=== PATIENT | female | born 1970 | race Caucasian/White ===

== ENCOUNTER 2024-05-03 09:45 | Emergency (ER) | payer OTHER, SELFPAY ==
[2024-05-03] VITALS (19 sets, daily range): BP systolic 75–120; BP diastolic 48–84; PULSE 64–101; RESP 14–22; TEMP 35.9–36.8; O2SAT 94–100; BMI 40.2
--- NOTE | 2024-05-03 10:03 | EKG12_ITS ---
Test Reason : Blood Pressure : */* mmHG Vent. Rate : 83 BPM Atrial Rate : 83 BPM P-R Int : 166 ms QRS Dur : 80 ms QT Int : 376 ms P-R-T Axes : 45 11 61 degrees QTcB Int : 441 ms Normal sinus rhythm Low voltage QRS Borderline ECG Confirmed by Jose Mock ([id number]), design editor [place] ([id number]) on 05/06/2024 10:45:52 AM Referred By: ANNMARIE Confirmed By: Jose Mock
--- NOTE | 2024-05-03 10:04 | EX.ED.DYSGE1 ---
HPI History of Present Illness Chief Complaint: Abd Pain Informant: patient, spouse/S.O. and EMS Narrative Narrative: 53-year-old female presenting to the emergency room with syncope abdominal/chest pain and back pain. states that the patient went for a walk. When she got back she whistle deformity came out of the shop and saw her had a syncopal episode. He states that having syncope is not that uncommon for her. She states that after the walk she developed pain in her mid back and in her lower chest upper abdomen which she feels as a pressure. EMS states that she had a syncopal episode for them. Prehospital EKG was reviewed by them and was reading a ST elevation [place]. They administered aspirin and Brilinta. When they called in and I reviewed the EKG and advised not to give heparin. Family states she has a history of congestive heart failure and she states that she takes a water pill. Patient states that she has leaky valves although. Whenever she needs it other than that she takes herbs because medicines make her heart rate fast. states that she has seen a Dr. Gutierrez in the country of [place]. Patient notes nausea but states that she cannot vomit since she had her hiatal hernia fixed. [facility] Medications ?Medication ?Instructions ?Recorded ?Last Taken ?Type dicyclomine 20 mg tablet 20 mg PO TID PRN abdominal pain 05/03/24 Unknown Rx #30 tabs ondansetron 4 mg disintegrating 4 mg PO Q6H PRN PRN Nausea #15 tabs 05/03/24 Unknown Rx tablet Allergy/AdvReac Type Severity Reaction Status Date / Time Iodinated Contrast Media Allergy Severe Anaphylaxis Verified 05/03/24 09:56 (iodine contrast) Penicillins Allergy Severe Anaphylaxis Verified 05/03/24 09:56 Social History Smoking Status: Never smoker ROS ROS ED Constitutional Constitutional ED: Denies chills or weight loss Eyes Eyes: Denies change in vision or diplopia ENT ENT ED: Denies ear pain, rhinorrhea or sore throat Cardiovascular Cardiovascular: Reports chest pain and other Details: Syncope ; Denies orthopnea, palpitations or racing heartbeat Respiratory/Chest Respiratory/Chest: Denies cough, dyspnea or orthopnea Gastrointestinal Gastrointestinal: Reports abdominal pain and nausea; Denies diarrhea or vomiting Genitourinary Genitourinary ED: Denies dysuria, hematuria or urinary frequency Musculoskeletal Musculoskeletal: Reports back pain; Denies arthralgias or myalgias Integumentary Denies abscess or rash Neurologic Neurologic: Denies headache(s) or weakness Psychiatric Psychiatric: Denies anxiety, depression, suicidal ideation or suicidal thoughts Endocrine Endocrinology: Denies polydipsia, polyphagia or polyuria Allergic/Immunologic Allergic/Immunologic ED: Denies mouth swelling, tongue swelling or urticaria EXAM Physical Exam Narrative Exam Narrative: Patient is tearful. Patient states she is having difficulty laying back in the bed and that she needs to sit on the side of the bed. Const Vital Signs: 05/03/24 09:47 05/03/24 09:54 05/03/24 10:00 Temperature 96.6 F L Temperature Source Axillary Pulse Rate 77 86 101 H Respiratory Rate 18 19 H 21 H Blood Pressure 109/83 H 89/50 L Blood Pressure Mean 91 63 Pulse Ox 97 99 100 Oxygen Delivery Method Room Air 05/03/24 10:15 05/03/24 10:30 05/03/24 10:34 Temperature Temperature Source Pulse Rate Respiratory Rate 20 H Blood Pressure 86/48 L 75/62 L 100/77 Blood Pressure Mean 58 68 85 Pulse Ox 99 Oxygen Delivery Method 05/03/24 10:45 05/03/24 10:45 05/03/24 11:00 Temperature Temperature Source Pulse Rate 85 Respiratory Rate 18 Blood Pressure 100/67 97/65 Blood Pressure Mean 77 76 Pulse Ox 97 97 Oxygen Delivery Method 05/03/24 11:15 05/03/24 11:30 05/03/24 11:45 Temperature Temperature Source Pulse Rate Respiratory Rate Blood Pressure 96/64 108/84 H Blood Pressure Mean 76 94 Pulse Ox 97 98 99 Oxygen Delivery Method 05/03/24 12:04 05/03/24 12:15 05/03/24 12:30 Temperature Temperature Source Pulse Rate 71 72 69 Respiratory Rate 20 H 17 15 Blood Pressure 102/77 111/77 Blood Pressure Mean 86 88 Pulse Ox 99 100 99 Oxygen Delivery Method 05/03/24 12:45 05/03/24 13:00 05/03/24 14:10 Temperature Temperature Source Pulse Rate 72 64 67 Respiratory Rate 20 H 14 22 H Blood Pressure 105/76 97/52 L 101/72 Blood Pressure Mean 87 67 81 Pulse Ox 99 99 100 Oxygen Delivery Method Nasal Cannula Room Air 05/03/24 15:20 Temperature Temperature Source Pulse Rate Respiratory Rate Blood Pressure Blood Pressure Mean Pulse Ox 100 Oxygen Delivery Method Positive well nourished, well developed and obese General Appearance ED: well developed Nutritional Appearance: obese HEENT Reports normocephalic, head/scalp atraumatic and moist mucous membranes Eyes PERRL and EOMs intact bilaterally Neck no lymphadenopathy, supple and no JVD Resp normal respiratory effort and clear to auscultation bilaterally Cardio regular rate, regular rhythm and no murmurs GI normal to inspection, nondistended, normoactive bowel sounds and non-tender Palpation: soft Back/Spine no CVA tenderness and normal ROM Extremity normal to inspection General Extremety ED: Negative for edema General Extremity: Negative for edema Neuro oriented x3 and CN's II-XII intact bilaterally Sensorium / Orientation: alert Motor Exam: strength 5/5 throughout Psych Mood & Affect: tearful; Negative for depressed Skin no rashes or lesions noted and no wounds MDM MDM MDM Narrative Medical decision making narrative: Differential diagnosis includes but not limited to acute coronary syndrome vasovagal syncope pancreatitis biliary colic AAA aortic dissection anemia cardiac dysrhythmia IVs were established EKG here does not show ST elevation. While awaiting blood work the patient had a syncopal episode. During which time she became hypotensive and the monitor showed a sinus bradycardia around 35. She woke after less than a minute. Shortly thereafter she had a exceedingly large bowel movement. Patient had a repeat EKG that showed no significant change. 3 sets of cardiac enzymes have been negative. My independent interpretation of the chest x-ray is no acute process. White count is significantly elevated 24.7 may be related to stress demargination and we are going to repeat it. Hemoglobin 14.4 BUN/creatinine LFTs showed only a minor elevation in transaminases at [address] of the chest and abdomen pelvis were obtained without contrast because the patient notes a anaphylactic reaction to contrast. These did not show any obvious aortic aneurysm leakage free air in the abdomen. Patient has received morphine Zofran as well as Ativan. She also received IV fluids. Patient has not had any further syncope. There have been no dysrhythmias noted on the monitor other than the sinus bradycardia during the syncopal event. Patient is now eating crackers and drinking water. I believe the patient can be discharged home. That she most likely has a diarrheal illness and had a vasovagal syncope. History & Record Review Discussion w/independent historian: EMS personnel, Patient and Significant other Lab Data Attestation: I reviewed the patient's lab results. Labs: Laboratory Results - last 24 hr 05/03/24 05/03/24 05/03/24 09:50 12:12 13:30 WBC 24.7 H RBC 4.68 Hgb 14.4 Hct 42.8 MCV 91.5 MCH 30.8 MCHC 33.6 RDW Std Deviation 46.3 H RDW Coeff of Maurice 14.0 Plt Count 347 MPV 9.7 Immature Gran % (Auto) 0.900 Neut % (Auto) 81.9 H Lymph % (Auto) 13.7 L [place] % (Auto) 3.0 Eos % (Auto) 0.2 Baso % (Auto) 0.3 Absolute Neuts (auto) 20.3 H Absolute Lymphs (auto) 3.38 Nucleated RBC % 0 Differential Comment COMMENT PT 12.3 INR 0.9 APTT 25.7 Sodium 139 Potassium 3.9 Chloride Direct 102 Carbon Dioxide 23.3 Anion Gap 14 BUN 18 Creatinine 0.80 Estim Creat Clear Calc 81.16 Est GFR (MDRD) Non-Af 87 BUN/Creatinine Ratio 22.8 H Glucose 128 H Calcium 10.4 Total Bilirubin 0.63 Direct Bilirubin 0.22 AST 34 H ALT 39 H Alkaline Phosphatase 84 Troponin T High Sens 8 Troponin T Hi Sens 2 Hr 10 Troponin T Hi Sens 2Hr Delta 2 Troponin T Hi Sens 4Hr 10 Troponin T Hi Sens 4Hr Delta 3 Total Protein 7.8 Albumin 4.5 Globulin 3.3 Lipase 21 05/03/24 14:42 WBC 16.5 H RBC 4.01 L Hgb 12.4 Hct 37.1 MCV 92.5 MCH 30.9 MCHC 33.4 RDW Std Deviation 46.5 H RDW Coeff of Maurice 13.9 Plt Count 239 MPV 9.5 Immature Gran % (Auto) 1.000 H Neut % (Auto) 83.4 H Lymph % (Auto) 9.2 L [place] % (Auto) 5.8 Eos % (Auto) 0.4 Baso % (Auto) 0.2 Absolute Neuts (auto) 13.8 H Absolute Lymphs (auto) 1.52 Nucleated RBC % 0 Differential Comment PT INR APTT Sodium Potassium Chloride Direct Carbon Dioxide Anion Gap BUN Creatinine Estim Creat Clear Calc Est GFR (MDRD) Non-Af BUN/Creatinine Ratio Glucose Calcium Total Bilirubin Direct Bilirubin AST ALT Alkaline Phosphatase Troponin T High Sens Troponin T Hi Sens 2 Hr Troponin T Hi Sens 2Hr Delta Troponin T Hi Sens 4Hr Troponin T Hi Sens 4Hr Delta Total Protein Albumin Globulin Lipase Radiography Diagnostic Testing: Clinical Impression(s) from Imaging Studies Chest X-Ray 05/03/24 10:10 IMPRESSION: No acute abnormality is seen. Borderline cardiomegaly. Reading Location: [facility] Chest/Abdomen/Pelvis CT 05/03/24 10:54 IMPRESSION: Mildly distended gallbladder lumen. No evidence of gallstones on this examination. One or more dose reduction techniques were used (e.g., Automated exposure control, adjustment of the mA and/or kV according to patient size, use of iterative reconstruction technique). Reading Location: [facility] EKG Initial EKG: Attestation: I personally reviewed and interpreted this EKG as follows: Comments: Normal sinus rhythm ventricular rate of 83 bpm. Follow-up EKG: Attestation: I personally reviewed and interpreted this EKG as follows: Comments: Normal sinus rhythm ventricular rate of 88 bpm Discharge Plan Triage Chief Complaint: Abd Pain ED Provider: Jaime Black Dx/Rx/DC Orders Clinical Impression: Syncope, Chest pain, Abdominal pain, Diarrhea Instructions: Diagnosing Syncope, ED Fainting, Vagal Reaction Prescriptions: New ondansetron 4 mg tablet,disintegrating 4 mg PO Q6H PRN PRN (Reason: Nausea) Qty: 15 0RF dicyclomine 20 mg tablet 20 mg PO TID PRN (Reason: abdominal pain) Qty: 30 0RF Primary Care Provider: Isidro Graham Referrals: Isidro Graham, [facility] [Primary Care Provider] - As Needed Print Language: Azerbaijani Disposition Disposition: Home, Self Care
--- NOTE | 2024-05-03 10:10 | RAD_ITS ---
PROCEDURE: CHEST 1 VIEW (PORTABLE) REASON FOR EXAM: Chest pain and shortness of breath. TECHNIQUE: Frontal view of the chest. COMPARISON: None FINDINGS: EKG electrodes are seen. Borderline cardiomegaly. The lungs are clear. Degenerative changes are identified within the thoracic spine. RAD/Chest 1 View (Portable) IMPRESSION: No acute abnormality is seen. Borderline cardiomegaly. Reading Location: [facility]
[2024-05-03 10:20] LABS: Absolute Lymphocyte Count 3.38 X10^3/uL (0.83-4.51); Absolute Neutrophil Count 20.3 X10^3/uL (2.0-7.7); Basophil# 0.07 X10^3/uL; Basophil% 0.3 % (0-1); Eosinophil# 0.06 X10^3/uL; Eosinophils% 0.2 % (0-5); Hematocrit 42.8 % (37-47); Hemoglobin 14.4 g/dL (12.0-15.0); Lymphocyte # 3.38 X10^3/ul (0.83-4.51); Lymphocyte % 13.7 % (19-41); Mean Corp Hgb Conc 33.6 g/dL (32-36); Mean Corpuscular Hgb 30.8 pg (27.0-32.0); Mean Corpuscular Volume 91.5 fL (81-99); Mean Platelet Vol. 9.7 fl (6.2-12.0); Monocyte# 0.75 X10^3/uL; NRBC Flagged by Analyzer 0 % (0-5); Neutrophil # 20.26 X10^3/uL (2.7-7.7); Neutrophil % 81.9 % (47-70); POSITIVE DIFFERENTIAL YES; Platelet Count 347 K/mm3 (150-450); RBC Distribution Width SD 46.3 fl (35.1-43.9); Red Blood Count 4.68 M/mm3 (4.2-5.4); White Blood Count 24.7 K/mm3 (4.4-11.0)
[2024-05-03 10:22] LABS: Differential Indicated SCAN CRITERIA MET
[2024-05-03 10:29] LABS: International Normalized Ratio 0.9; Partial Thromboplast Time 25.7 Seconds (24.1-36.2); Prothrombin Time (Protime)PT. 12.3 SECONDS (11.7-14.9)
[2024-05-03] MEDS: Morphine 4 MG/ML Syringe IV (10:39)
[2024-05-03] MEDS: Lorazepam 2 MG/ML WCH Syringe 1 MG IV (10:39)
[2024-05-03] MEDS: Ondansetron 4 MG/2 ML Vial IV (10:39)
[2024-05-03 10:46] LABS: AST(SGOT) 34 U/L (<=31); Alanine Aminotransfer ALT/SGPT 39 U/L (<=34); Albumin, Serum 4.5 g/dL (3.5-5.0); Alkaline Phosphatase 84 U/L (35-104); Anion Gap 14 (5-15); BUN 18 mg/dL (4-19); BUN/Creat Ratio 22.8 RATIO (10-20); Bilirubin, Direct 0.22 mg/dL (0.00-0.30); Calcium 10.4 mg/dL (7.6-11.0); Carbon Dioxide 23.3 mmol/L (22.0-29.0); Chloride 102 mmol/L (96-108); EST Glomerular Filtration Rate 87 (>60); Estimated Creatinine Clearance 81.16 ml/min; Globulin 3.3 g/dL (2.2-4.2); Glucose 128 mg/dL (70-99); Lipase 21 U/L (13-75); Potassium 3.9 mmol/L (3.3-5.1); Protein, Total 7.8 g/dL (5.9-8.4); Sodium Level 139 mmol/L (133-145); Total Bilirubin 0.63 mg/dL (0.00-1.30)
--- NOTE | 2024-05-03 10:54 | CT_ITS ---
PROCEDURE: CT CHEST, ABD, PELVIS WO CONT REASON FOR EXAM: Epigastric and chest pain. Syncopal episodes. TECHNIQUE: Chest CT with intravenous contrast and 3D reconstructions. Abdomen and pelvis CT using the same contrast dose. CONTRAST: COMPARISON: None. FINDINGS: CHEST: Mild enlargement of the thyroid gland. Mediastinum: Calcified right hilar lymph nodes. Heart: Normal heart size. No pericardial effusion. Thoracic Aorta: Atherosclerotic plaque formation of the aortic arch. Lungs and Airways: Calcified granulomas in the right lower lobe. Pleura: No pleural effusion. No pneumothorax. Bones: Degenerative changes of the spine. ABDOMEN AND PELVIS: Liver: Unremarkable. Gallbladder: Mildly distended gallbladder lumen. Spleen: Unremarkable. Pancreas: Unremarkable. Adrenals: Unremarkable. Kidneys: Unremarkable. Bladder: Unremarkable. Reproductive Organs: Status post hysterectomy. Bowel: Unremarkable.. Small hiatal hernia. Vasculature: Mild diffuse atherosclerotic calcifications are noted. Peritoneum / Retroperitoneum: No free fluid. No free air. Bones: No acute osseous abnormality identified. CT/CT Chest, Abd, Pelvis WO Cont IMPRESSION: Mildly distended gallbladder lumen. No evidence of gallstones on this examinat ion. One or more dose reduction techniques were used (e.g., Automated exposure contr ol, adjustment of the mA and/or kV according to patient size, use of iterative reconstruction technique). Reading Location: [id number]
--- NOTE | 2024-05-03 11:00 | EKG12_ITS ---
Test Reason : CP Blood Pressure : */* mmHG Vent. Rate : 88 BPM Atrial Rate : 88 BPM P-R Int : 184 ms QRS Dur : 80 ms QT Int : 354 ms P-R-T Axes : 47 14 39 degrees QTcB Int : 428 ms Normal sinus rhythm Minor Nonspecific ST abnormality Borderline Confirmed by Jose Mock ([id number]), research editor [place] ([id number]) on 05/06/2024 10:46:12 AM Referred By: ANNMARIE Confirmed By: Jose Mock
[2024-05-03 11:13] LABS: Troponin T High Sensitivity 8 ng/L (<=14)
--- NOTE | 2024-05-03 12:26 | ED.RN ---
Pt does not want to be electrocuted
[2024-05-03 12:44] LABS: TROPONIN VARIANCE 2 HR 2; Troponin T High Sens 2 HR 10 ng/L (<=14)
[2024-05-03 14:21] LABS: TROPONIN VARIANCE 4 HR 3; Troponin T High Sens 4 HR 10 ng/L (<=14)
[2024-05-03 14:53] LABS: Absolute Lymphocyte Count 1.52 X10^3/uL (0.83-4.51); Absolute Neutrophil Count 13.8 X10^3/uL (2.0-7.7); Basophil# 0.03 X10^3/uL; Basophil% 0.2 % (0-1); Eosinophil# 0.06 X10^3/uL; Eosinophils% 0.4 % (0-5); Hematocrit 37.1 % (37-47); Hemoglobin 12.4 g/dL (12.0-15.0); Lymphocyte # 1.52 X10^3/ul (0.83-4.51); Lymphocyte % 9.2 % (19-41); Mean Corp Hgb Conc 33.4 g/dL (32-36); Mean Corpuscular Hgb 30.9 pg (27.0-32.0); Mean Corpuscular Volume 92.5 fL (81-99); Mean Platelet Vol. 9.5 fl (6.2-12.0); Monocyte# 0.95 X10^3/uL; Monocyte% 5.8 % (0-10); NRBC Flagged by Analyzer 0 % (0-5); Neutrophil # 13.79 X10^3/uL (2.7-7.7); Neutrophil % 83.4 % (47-70); Platelet Count 239 K/mm3 (150-450); RBC Distribution Width CV 13.9 % (11.6-14.6); RBC Distribution Width SD 46.5 fl (35.1-43.9); Red Blood Count 4.01 M/mm3 (4.2-5.4); White Blood Count 16.5 K/mm3 (4.4-11.0)
== END 2024-05-03 15:58 | disposition home or self-care (01) ==
PROVIDERS: Emergency Provider Emergency Medicine; PCP Physician Assistant; Visit Provider Emergency Medicine
DX: R55 Syncope and collapse (principal); Z68.41 Body mass index [BMI] 40.0-44.9, adult; R10.10 Upper abdominal pain, unspecified; R19.7 Diarrhea, unspecified; R07.9 Chest pain, unspecified; E66.9 Obesity, unspecified
CPT/HCPCS: 71045; 71250; 74176; 80048; 80076; 83690; 84484; 85025; 85610; 85730; 87177; 87209; 87506; 93005; 96374; 96375; 99285; A4216; J2405